=== PATIENT | male | born 1990 | race Caucasian/White ===

== ENCOUNTER 2017-11-09 18:22 | Emergency (ER) | payer OTHER ==
[2017-11-09 18:33] VITALS: BP 178/81
[2017-11-09] MEDS ORDERED: Aspirin TAB* 325 MG PO ONE (18:37)
[2017-11-09] MEDS ORDERED: Aspirin 81 mg CHEW TAB* 81 MG TAB.CHEW ONE (18:39)
[2017-11-09] MEDS ORDERED: Aspirin 81 mg CHEW TAB* 81 MG TAB.CHEW PO ONE ×2 (18:39→18:41)
--- NOTE | 2017-11-09 18:39 | UC ---
Cardiac HPI - HPI Summary HPI Summary: Pt is a 27 year old male presenting to the with a chief complaint of chest pain. The pt states it came on suddenly around 20 minutes ago while he was driving to [place], and he currently just does not feel right, with numbness in his R hand and chest pain in his L chest. The pt is diaphoretic. The pain denies any pain with deep breathing, any recent surgeries or casts, lower extremity pain, headaches, outside events to cause anxiety, or any other medical problems. The pt just got out of rehab and just started his suboxone again, also stating that he has had no symptoms like this during rehab. The pt denies any family history of heart attacks or cancer. The pt has smoked half a pack a day for about 10 years. Pt also reports feeling better during visit. - History of Current Complaint Stated Complaint: CHEST PAIN Hx Obtained From: Patient Onset/Duration: Sudden Onset, Lasting Minutes - about 20 minutes ago, Still Present Timing: Constant Initial Severity: Mild Current Severity: Mild Pain Intensity: 0 Chest Pain Location: Left Anterior Alleviating Factor(s): Rest Associated Signs & Symptoms: Positive: Chest Pain, Numbness - R hand/arm, SOB, Diaphoresis. Negative: Calf Pain/Swelling - Allergy/Home Medications Allergies/Adverse Reactions: Allergies Allergy/AdvReac Type Severity Reaction Status Date / Time haloperidol [From Haldol] Allergy TONGUE Verified 11/09/17 18:29 SWELLS AND JAW LOCKS Home Medications: Home Medications Buprenorphine/Naloxone SL TAB* [Suboxone 8-2 mg SL TAB*] 1 tab SL DAILY [History Confirmed 11/09/17] Omeprazole 20 mg PO DAILY 11/09/17 [History Confirmed 11/09/17] PMH/Surg Hx/FS Hx/Imm Hx Previously Healthy: No Cardiovascular History: Hypertension GI/ History: Gastroesophageal Reflux - Surgical History Surgical History: Yes Surgery Procedure, Year, and Place: ear tubes - Family History Known Family History: Positive: Hypertension, Diabetes - Social History Alcohol Use: None Alcohol Amount: RECOVERED ALCOHOLIC X 3 YRS Substance Use Type: None Substance Use Comment - Amount & Last Used: HX OF MARIJUANA USE Smoking Status (MU): Heavy Every Day Tobacco Smoker Type: Cigarettes Amount Used/How Often: 1/2 ppd Length of Time of Smoking/Using Tobacco: 10 years Have You Smoked in the Last Year: Yes Household Exposure Type: Cigarettes Review of Systems Constitutional: Negative - fever Skin: Other - diaphoretic Respiratory: Shortness Of Breath Cardiovascular: Chest Pain All Other Systems Reviewed And Are Negative: Yes Physical Exam - Summary Physical Exam Summary: Appearance: Well-appearing, Well-nourished Skin: Warm Eyes: Normal ENT: Normal Neck: Supple, nontender Respiratory: Clear to auscultation Cardiovascular: Normal S1, S2. No murmurs. Normal distal pulses in pedal and radial bilaterally. Abdomen: Soft, nontender Musculoskeletal: Normal, Strength/ROM Intact Neurological: Normal, A&Ox3 Psychiatric: Normal General: No acute distress Triage Information Reviewed: Yes Vital Signs: Initial Vital Signs Temp 98.9 F 11/09/17 18:26 Pulse 92 11/09/17 18:26 Resp 18 11/09/17 18:26 BP 178/81 11/09/17 18:26 Pulse Ox 98 11/09/17 18:26 Vital Signs Reviewed: Yes Diagnostics - EKG EKG Comments: S wave present in lead I, Q wave and inverted T wave lead III. Cardiac Rate: NL - 93bpm Ectopy: None ST Segment: Normal Re-Evaluation - Re-Evaluation 1 Change: Improved Comment: Pt came out of room at 1856, just as EMS was arriving, and said he felt much better and that he did not want to go to [facility] anymore. I spoke with him , made sure he understood that this could be life threatening and he needed to see a physician immediately. The pt verbally stated that he understood the risks , then left without getting any of his discharge papers. Pt also explained that he is convinced it was his anxiety, and that he had to file a police report for his car right before his arrival that he did not finish. - Assessment/Plan Course Of Treatment: Given the patient's history and physical exam, I instructed the patient that I believed it was appropriate for him to be transported by ambulance to the emergency department for further cardiac evaluation. Patient refuses transfer against my advice and wants to go to hospital closer to his home. Patient says he feels better at this time without any active chest pain. I informed the patient that he may be putting himself at risk, and that he is putting himself in danger of permanent disability, serious cardiac injury, and/or . Patient understands risks of leaving AGAINST MEDICAL ADVICE and demonstrates understanding. - Clinical Impression Provider Diagnoses: chest pain Discharge - Sign-Out/Discharge Documenting (check all that apply): Patient Departure All imaging exams completed and their final reports reviewed: No Studies - Discharge Plan Condition: Stable Disposition: AGAINST MEDICAL ADVICE Referrals: Ani Higgins MD [Primary Care Provider] - - Billing Disposition and Condition Condition: STABLE Disposition: Against Medical Advice - Attestation Statements Document Initiated by Scribe: Yes Documenting Scribe: Elin Casey Provider For Whom Aishwarya is Documenting (Include Credential): Joon Nevarez MD. Scribe Attestation: Elin Fuller, scribed for Joon Nevarez MD. on 11/09/17 at 2250. Scribe Documentation Reviewed: Yes Provider Attestation: The documentation as recorded by the [email or web address] accurately reflects the service I personally performed and the decisions made by , Joon Nevarez MD. Consult Consult: 1838 - Spoke with Rosario Macedo at [facility] to transfer patient by ambulance to the ED, she will be accepting the patient. 1904 - [facility] is aware that the pt is no longer coming.
== END 2017-11-09 19:00 | disposition left against medical advice (07) ==
LOC: UCEAST 18:22
DX: R07.9 Chest pain, unspecified (principal); R61 Generalized hyperhidrosis; R20.0 Anesthesia of skin; I10 Essential (primary) hypertension; K21.9 Gastro-esophageal reflux disease without esophagitis; Z79.899 Other long term (current) drug therapy; Z88.8 Allergy status to other drugs, medicaments and biological substances
CPT/HCPCS: 93005; 99212; A9270-GY; G0463